=== PATIENT | male | born 1975 | race Caucasian/White ===

== ENCOUNTER 2017-08-04 19:18 | Emergency (ER) | payer MEDICAID ==
[2017-08-04 20:40] LABS: APPEARANCE CLEAR (CLEAR); BILIRUBIN NEGATIVE (NEGATIVE); COLOR YELLOW (YELLOW); GLUCOSE NEGATIVE (NEGATIVE); KETONE NEGATIVE (NEGATIVE); NITRITE NEGATIVE (NEGATIVE); PROTEIN NEGATIVE (NEGATIVE); UROBILINOGEN NORMAL (NORMAL)
[2017-08-07 22:15] LABS: CHLAMYDIA TRACHOMATIS, NAA Negative (Negative)
== END 2017-08-04 21:21 | disposition home or self-care (01) ==
LOC: D.ER 19:18
PROVIDERS: Emergency Medicine
DX: N34.2 Other urethritis (principal); F17.200 Nicotine dependence, unspecified, uncomplicated

== ENCOUNTER 2018-01-27 20:19 | Emergency (ER) | payer SELFPAY ==
[~2018-01-27] VITALS: Ht 167.6 cm; Wt 70.5 kg
[2018-01-27 20:24] VITALS: Ht 167.6 cm; Wt 70.5 kg
[2018-01-27 22:59] VITALS: BP 121/80
== END 2018-01-27 22:59 | disposition home or self-care (01) ==
LOC: D.ER 20:19
DX: S80.12XA Contusion of left lower leg, initial encounter (principal); W17.89XA Other fall from one level to another, initial encounter; Y93.89 Activity, other specified; Y92.89 Other specified places as the place of occurrence of the external cause; Z90.01 Acquired absence of eye; F17.200 Nicotine dependence, unspecified, uncomplicated

== ENCOUNTER 2018-04-14 14:41 | Emergency (ER) | payer MEDICAID ==
[~2018-04-14] VITALS: Ht 167.6 cm; Wt 63.6 kg
[2018-04-14 14:48] VITALS: Ht 167.6 cm; Wt 63.6 kg
[2018-04-14] MEDS ORDERED: KEFLEX500 MG PO (16:38)
[2018-04-14] MEDS ORDERED: ULTRAM50 MG PO (16:38)
[2018-04-14 16:59] VITALS: BP 148/64
== END 2018-04-14 17:00 | disposition home or self-care (01) ==
LOC: D.ER 14:41
DX: S61.210A Laceration without foreign body of right index finger without damage to nail, initial encounter (principal); W26.8XXA Contact with other sharp object(s), not elsewhere classified, initial encounter; Y93.89 Activity, other specified; Y92.89 Other specified places as the place of occurrence of the external cause; F17.200 Nicotine dependence, unspecified, uncomplicated